=== PATIENT | female | born 1935 | race Caucasian/White ===

== ENCOUNTER 2017-11-30 15:15 | Inpatient (IN) | payer OTHER, BC ==
[~2017-11-30] VITALS: Ht 149.9 cm; Wt 53.0 kg
[~2017-11-30 15:15] MED LIST: ADULT LOW DOSE81 M1 PO; ALPHAGAN P100 DROP/5 RIGHT EYE; AMLODIPINE BESYL5 MG PO; ANTACID LIQUID355 ML PO; ASPIR 8181 M1 PO; ASPIRIN81 M2 PO; AUGMENTIN500 MG PO; B COMPLEX #11 EACH PO; BENAZEPRIL HCL40 MG PO; CARAFATE1 GM PO; COSOPT EYE DROPS5 ML LEFT EYE; CRESTOR10 MG PO; CYANOCOBALAM1000 MCG PO; CYANOCOBALAMI100 MCG PO; DILAUDID2 MG PO; FIBER LAXATIV0.52 GM PO; GLUCOPHAGE500 MG PO; HYCODAN SYRUP480 ML PO; HYDROCHLOROTH12.5 M3 PO; HYDROCHLOROTH12.5 MG PO; Hydrodiuril,Oretic,E PO; LOTEMAX5 GM RIGHT EYE; LOW DOSE ASPIRI81 M2 PO; LUMIGAN 0.01% EYE DR; LUMIGAN 0.50 DROP/2. BOTH EYES; LUMIGAN 0.50 DROP/2. RIGHT EYE; LUMIGAN 0.50 DROP/22 BOTH EYES; MAXIDEX5 ML LEFT EYE; METAMUCIL197.2 GM PO; METFORMIN HCL500 MG PO; METOPROLOL SUCC25 MG PO; MIRALAX17 GM PO; Motrin PO; NITROSTAT0.4 MG SL; ONDANSETRON ODT4 MG PO; OXYCONTIN10 MG PO; PLAVIX75 MG PO; PRILOSEC10 MG PO; PRILOSEC20 MG PO; ST. JOSEPH ASPI81 MG PO; STOOL SOFTENER100 MG PO; TOPROL XL25 MG PO; TOPROL XL6.25 MG PO; TRUSOPT5 ML LEFT EYE; TUMS500 MG PO; TUSSIONEX PENN473 ML PO; TYLENOL EXTRA500 MG PO; VITAMIN B12-FO1 EACH PO; VITAMIN D-32000 UNIT PO; VITAMIN D1000 INTUN PO; VITAMIN D22000 UNIT PO; VITAMIN D31000 UNIT PO
[2017-11-30 16:35] LABS: HEMATOCRIT 26.9 % (36.0-46.0); HEMOGLOBIN 8.6 G/DL (11.9-15.5); MCH 25.4 PG (29.0-34.0); MCV 79.6 FL (83-99); PLATELET COUNT 307 K/uL (156-360); RBC DIS.WIDTH-CV 15.9 % (11.8-14.6); RBC DIS.WIDTH-SD 45.6 % (39-53); RED BLOOD COUNT 3.38 M/uL (3.80-5.20); WHITE BLOOD COUNT 4.8 K/uL (4.1-10.2)
[2017-11-30 16:54] LABS: CHLORIDE 102 mEq/L (99-109); POTASSIUM 4.1 mEq/L (3.7-5.4); SODIUM 134 mEq/L (136-147)
[2017-11-30 16:56] LABS: GLUCOSE 92 mg/dL (70-99)
[2017-11-30 17:00] LABS: CREATININE 0.7 mg/dL (0.6-1.3); GFR ESTIMATE (CALCULATED) > 59 mL/min/; UREA NITROGEN (BUN) 12 mg/dL (9-23)
[2017-11-30 18:08] LABS: ALBUMIN 4.2 g/dL (3.2-4.8)
[2017-11-30 18:13] LABS: ALKALINE PHOSPHATASE 76 IU/L (3-129); TOTAL BILIRUBIN 0.4 mg/dL (0.0-1.0)
[2017-11-30 18:16] LABS: AST (GOT) 25 IU/L (2-34)
[2017-11-30 18:17] LABS: ALT (GPT) 15 IU/L (3-49); LIPASE 396 U/L (1.0-51.0)
[2017-11-30 22:35] VITALS: BP 179/76
[2017-11-30 22:45] VITALS: BP 179/76
[2017-12-01] VITALS (10 sets, daily range): BP systolic 130–193; BP diastolic 62–78
[2017-12-01 06:02] LABS: HEMATOCRIT 23.6 % (36.0-46.0); HEMOGLOBIN 7.4 G/DL (11.9-15.5); MCH 25.4 PG (29.0-34.0); MCHC 31.4 G/DL (30.0-36.0); MCV 81.1 FL (83-99); PLATELET COUNT 269 K/uL (156-360); RBC DIS.WIDTH-CV 16.1 % (11.8-14.6); RBC DIS.WIDTH-SD 47.4 % (39-53); RED BLOOD COUNT 2.91 M/uL (3.80-5.20); WHITE BLOOD COUNT 3.8 K/uL (4.1-10.2)
[2017-12-01 06:23] LABS: CHLORIDE 106 MEQ/L (99-109); CREATININE 0.7 MG/DL (0.6-1.3); GFR ESTIMATE (CALCULATED) > 59 mL/min/; GLUCOSE 84 mg/dL (70-99); POTASSIUM 4.1 MEQ/L (3.7-5.4); SODIUM 138 MEQ/L (136-147); UREA NITROGEN (BUN) 11 mg/dL (9-23)
[2017-12-01 07:57] LABS: ALBUMIN 3.2 G/DL (3.2-4.8); ALKALINE PHOSPHATASE 58 IU/L (3-129); ALT (GPT) 9 IU/L (3-49); AST (GOT) 17 IU/L (2-34); DIRECT BILIRUBIN 0.1 mg/dL (0.0-0.3); LIPASE 70 U/L (1.0-51.0); TOTAL BILIRUBIN 0.4 MG/DL (0.0-1.0); TOTAL PROTEIN 5.3 G/DL (6.4-8.3)
[2017-12-01 10:38] LABS: HEMATOCRIT 25.5 % (36.0-46.0)
[2017-12-01 15:46] LABS: HEMATOCRIT 29.3 % (36.0-46.0); HEMOGLOBIN 9.1 G/DL (11.9-15.5); MCV 80.7 FL (83-99)
[2017-12-01 22:38] LABS: HEMATOCRIT 27.1 % (36.0-46.0); HEMOGLOBIN 8.9 G/DL (11.9-15.5); MCV 80.4 FL (83-99)
[2017-12-02 03:56] VITALS: BP 134/62
[2017-12-02 06:52] LABS: BASOPHIL (%) 0.6 % (0-1); EOSINOPHIL (%) 0.8 % (0-5); HEMATOCRIT 27.2 % (36.0-46.0); HEMOGLOBIN 8.8 G/DL (11.9-15.5); IMMATURE GRANULOCYTE (%) 0.4 % (0.0-0.7); LYMPHOCYTE (%) 23.3 % (15-42); LYMPHOCYTE COUNT 1.2 K/uL (1.0-2.8); MCH 25.9 PG (29.0-34.0); MCHC 32.4 G/DL (30.0-36.0); MONOCYTE (%) 12.5 % (3-12); MONOCYTE COUNT 0.7 K/uL (0-0.8); NEUTROPHIL (%) 62.4 % (45-76); NEUTROPHIL COUNT 3.3 K/uL (1.8-6.4); PLATELET COUNT 264 K/uL (156-360); RBC DIS.WIDTH-CV 15.5 % (11.8-14.6); RBC DIS.WIDTH-SD 45.1 % (39-53); WHITE BLOOD COUNT 5.3 K/uL (4.1-10.2)
[2017-12-02 07:10] LABS: CREATININE 0.7 MG/DL (0.6-1.3); GFR ESTIMATE (CALCULATED) > 59 mL/min/; UREA NITROGEN (BUN) 10 mg/dL (9-23)
[2017-12-02 08:45] VITALS: BP 139/65
[2017-12-02 11:38] LABS: HEMATOCRIT 28.6 % (36.0-46.0); HEMOGLOBIN 9.3 G/DL (11.9-15.5); MCV 80.3 FL (83-99)
[2017-12-02] MEDS ORDERED: PROTONIX40 MG PO (12:05)
[2017-12-02] MEDS ORDERED: BENTYL10 MG PO (12:05)
== END 2017-12-02 16:10 | disposition home health service (06) | DRG 379 ==
LOC: EME 15:15 → 2EAST 20:15 → EDOF 20:15 → ENRESERV 20:21 → 2EAST 22:33 → ENPENDDIS 12-02 → 2EAST 12-02 16:10
PROVIDERS: Hospitalist; Internal Medicine Gastroenterology
PROC: 30233N1 Transfusion of Nonautologous Red Blood Cells into Peripheral Vein, Percutaneous Approach (ICD-10-PCS; principal; 2017-12-01)
PROC: 0DB68ZX Excision of Stomach, Via Natural or Artificial Opening Endoscopic, Diagnostic (ICD-10-PCS; 2017-12-01)
DX: K25.4 Chronic or unspecified gastric ulcer with hemorrhage (principal); K44.9 Diaphragmatic hernia without obstruction or gangrene; K31.7 Polyp of stomach and duodenum; K31.89 Other diseases of stomach and duodenum; E11.9 Type 2 diabetes mellitus without complications; I10 Essential (primary) hypertension; E78.2 Mixed hyperlipidemia; I25.10 Atherosclerotic heart disease of native coronary artery without angina pectoris; I48.0 Paroxysmal atrial fibrillation; K21.9 Gastro-esophageal reflux disease without esophagitis; K57.30 Diverticulosis of large intestine without perforation or abscess without bleeding; D64.9 Anemia, unspecified; Z66 Do not resuscitate; Z79.82 Long term (current) use of aspirin; Z79.84 Long term (current) use of oral hypoglycemic drugs; Z86.73 Personal history of transient ischemic attack (TIA), and cerebral infarction without residual deficits; Z87.11 Personal history of peptic ulcer disease; Z87.442 Personal history of urinary calculi; Z87.891 Personal history of nicotine dependence; Z95.5 Presence of coronary angioplasty implant and graft
CPT/HCPCS: 74177; 80048; 80053; 80076; 82565; 82948; 83690; 84520; 85014; 85018; 85025; 85027; 86850; 86900; 86901; 86920; 88305; 88342 TC; 99281; 99285; C9113; J7030; P9016

== ENCOUNTER 2018-02-21 10:03 | Emergency (ER) | payer OTHER, BC ==
[~2018-02-21] VITALS: Ht 149.9 cm; Wt 49.5 kg
[~2018-02-21 10:03] MED LIST changes: +BENTYL10 MG PO; +PROTONIX40 MG PO
[2018-02-21 10:55] LABS: BASOPHIL (%) 0.6 % (0-1); EOSINOPHIL (%) 0 % (0-5); HEMATOCRIT 32.2 % (36.0-46.0); HEMOGLOBIN 10.5 G/DL (11.9-15.5); IMMATURE GRANULOCYTE (%) 0.4 % (0.0-0.7); LYMPHOCYTE (%) 14.9 % (15-42); LYMPHOCYTE COUNT 0.7 K/uL (1.0-2.8); MCH 24.7 PG (29.0-34.0); MCHC 32.6 G/DL (30.0-36.0); MCV 75.8 FL (83-99); MONOCYTE (%) 11.1 % (3-12); MONOCYTE COUNT 0.5 K/uL (0-0.8); NEUTROPHIL COUNT 3.5 K/uL (1.8-6.4); PLATELET COUNT 228 K/uL (156-360); RBC DIS.WIDTH-CV 17.3 % (11.8-14.6); RBC DIS.WIDTH-SD 47.4 % (39-53); RED BLOOD COUNT 4.25 M/uL (3.80-5.20); WHITE BLOOD COUNT 4.8 K/uL (4.1-10.2)
[2018-02-21 11:01] LABS: INTER. NORMALIZED RATIO 1.1
[2018-02-21 11:04] LABS: ALBUMIN 4.1 g/dL (3.2-4.8); CHLORIDE 95 mEq/L (99-109); POTASSIUM 4.6 mEq/L (3.7-5.4); PTT 28.5 SEC (25-37); SODIUM 128 mEq/L (136-147)
[2018-02-21 11:06] LABS: GLUCOSE 128 mg/dL (70-99)
[2018-02-21 11:07] LABS: TOTAL PROTEIN 6.8 g/dL (6.4-8.3)
[2018-02-21 11:08] LABS: TOTAL BILIRUBIN 0.3 mg/dL (0.0-1.0)
[2018-02-21 11:10] LABS: ALKALINE PHOSPHATASE 78 IU/L (3-129); CREATININE 0.8 mg/dL (0.6-1.3); GFR ESTIMATE (CALCULATED) > 59 mL/min/
[2018-02-21 11:11] LABS: UREA NITROGEN (BUN) 12 mg/dL (9-23)
[2018-02-21 11:12] LABS: AST (GOT) 25 IU/L (2-34)
[2018-02-21 11:13] LABS: ALT (GPT) 13 IU/L (3-49)
[2018-02-21 11:16] LABS: TROP-I INTERPRETATION NEGATIVE; TROPONIN-I < 0.01 ng/mL (0.0-0.30)
[2018-02-21 12:11] LABS: APPEARANCE CLEAR ((CLEAR)); BILIRUBIN NEGATIVE; BLOOD NEGATIVE; COLOR YELLOW ((YELLOW)); GLUCOSE (STRIP) NEGATIVE; KETONES NEGATIVE; LEUKOCYTES NEGATIVE; NITRITE NEGATIVE; PROTEIN (STRIP) 30; SPECIFIC GRAVITY 1.012 (1.000-1.030); UCUL ADDED? NO; UROBILINOGEN 0.2 MG/DL (0.2-1.0)
[2018-02-21] MEDS ORDERED: ULTRAM50 MG PO (16:07)
[2018-02-21 16:50] VITALS: BP 130/73
== END 2018-02-21 16:53 | disposition home or self-care (01) ==
LOC: EME 10:03
PROVIDERS: Emergency Medicine
DX: S00.03XA Contusion of scalp, initial encounter (principal); S16.1XXA Strain of muscle, fascia and tendon at neck level, initial encounter; E87.1 Hypo-osmolality and hyponatremia; R42 Dizziness and giddiness; I49.8 Other specified cardiac arrhythmias; I10 Essential (primary) hypertension; E78.5 Hyperlipidemia, unspecified; K57.30 Diverticulosis of large intestine without perforation or abscess without bleeding; Z87.442 Personal history of urinary calculi; Z95.5 Presence of coronary angioplasty implant and graft; Z87.891 Personal history of nicotine dependence; W20.8XXA Other cause of strike by thrown, projected or falling object, initial encounter; Y92.512 Supermarket, store or market as the place of occurrence of the external cause
CPT/HCPCS: 70450; 71045; 71250; 72125; 74176; 80053; 81003; 83605; 83735; 84484; 85025; 85610; 85730; 93005; 99281; 99284; J3010